=== PATIENT | male | born 1965 | race Caucasian/White ===

== ENCOUNTER 2022-03-03 10:40 | Emergency (ER) | payer OTHER ==
[~2022-03-03] VITALS: Ht 180.3 cm; Wt 98.4 kg
[2022-03-03 10:49] VITALS: BP 114/79
[2022-03-03] MEDS ORDERED: ATRO1TAB PO (12:21)
[2022-03-03] MEDS ORDERED: SIME80TA22 PO (12:22)
--- NOTE | 2022-03-03 12:32 | NUR ---
Patient discharged with v/s stable. Written and verbal after care instructions given. Patient alert, oriented and verbalized understanding of instructions. Ambulatory with steady gait. All questions addressed prior to discharge. ID band removed. Patient advised to follow up with PMD. Rx of Simethicone and Lomotil given. Opportunity to ask questions provided and answered.
--- NOTE | 2022-03-03 12:33 | NUR ---
The patient's care was reviewed and supervised by Gianna Stokes, RN, RN.
== END 2022-03-03 12:32 | disposition home or self-care (01) ==
LOC: MED 10:40
DX: R19.7 Diarrhea, unspecified (principal)
CPT/HCPCS: 99283